=== PATIENT | male | born 1985 | race Two or more races ===

== ENCOUNTER 2018-01-25 17:01 | Observation (INO) | payer BC ==
[2018-01-25] MEDS ORDERED: Cefepime 1 GM in Premix Bag 1 BAG IV ONE (17:17)
[2018-01-25] MEDS ORDERED: HYDROmorphone 0.5 MG/0.5 ML SYRINGE IVPUSH PRN (17:18)
[2018-01-25] MEDS ORDERED: metroNIDAZOLE/Normal Saline 500 MG in Premix Bag 1 BAG IV ONE (17:21)
--- NOTE | 2018-01-25 17:25 | PCM.PREANE ---
Preanesthetic Assessment - Anesthesia/Transfusion/Family Hx Anesthesia History: Prior Anesthesia Without Reaction Family History of Anesthesia Reaction: No Transfusion History: No Prior Transfusion(s) Intubation History: Unknown - Review of Systems General: Weakness, Fatigue, Chills (yesterday) Pulmonary: No Symptoms Cardiovascular: No Symptoms Gastrointestinal: No Symptoms, Decreased Appetite Neurological: No Symptoms (vertigo episode noted 8 years ago.) Other: Reports: None - Physical Assessment NPO Status Date: 01/25/18 NPO Status Time: 15:30 Pulse: 84 O2 Sat by Pulse Oximetry: 99 Respiratory Rate: 16 Blood Pressure: 116/74 Temperature: 36.6 C Vital Signs: Last Vital Signs Temp 36.6 C 01/25/18 17:11 Pulse 84 01/25/18 17:11 Resp BP 116/74 01/25/18 17:11 Pulse Ox 99 01/25/18 17:11 Height: 1.78 m Weight: 86.183 kg ASA Class: 1E Mental Status: Alert & Oriented x3 Airway Class: Mallampati = 2 Dentition: Reports: Normal Dentition, Caries Thyro-Mental Finger Breadths: 3 Mouth Opening Finger Breadths: 3 ROM/Head Extension: Full Lungs: Clear to Auscultation, Normal Respiratory Effort Cardiovascular: Regular Rate, Regular Rhythm, No Murmurs - Lab Values: All lab values reviewed and noted and within acceptable ranges to proceed with scheduled procedure - Allergies Allergies/Adverse Reactions: Allergies Allergy/AdvReac Type Severity Reaction Status Date / Time No Known Allergies Allergy Verified 01/25/18 17:10 - Anesthesia Plan Pre-Op Medication Ordered: None - Acknowledgements Anesthesia Type Planned: General Anesthesia Pt an Appropriate Candidate for the Planned Anesthesia: Yes Alternatives and Risks of Anesthesia Discussed w Pt/Guardian: Yes Pt/Guardian Understands and Agrees with Anesthesia Plan: Yes PreAnesthesia Questionnaire - Past Health History Medical/Surgical History: Denies Medical/Surgical History - SUBSTANCE USE Smoking Status *Q: Current Every Day Smoker Tobacco Use Within Last Twelve Months: Snuff/Dip Recreational Drug Use History: No - HOME MEDS Home Medications: Home Meds . [No Known Home Meds] 05/08/15 [History] - CURRENT (IN HOUSE) MEDS Current Meds: Current Medications Hydromorphone HCl (Dilaudid) 1 mg IVPUSH Q1H PRN PRN Reason: Pain Cefepime HCl 1 gm/ Premix 50 mls @ 100 mls/hr IV ONETIME ONE Stop: 01/25/18 17:46 Metronidazole 500 mg/ Premix 100 mls @ 100 mls/hr IV ONETIME ONE Stop: 01/25/18 18:20 Discontinued Medications Fentanyl (Sublimaze) Confirm Administered Dose 250 mcg .ROUTE .STK-MED ONE Stop: 01/25/18 17:31 Hydromorphone HCl (Dilaudid) Confirm Administered Dose 0.5 mg .ROUTE .STK-MED ONE Stop: 01/25/18 17:30 Lidocaine HCl (Xylocaine-Mpf 1%) Confirm Administered Dose 4 mls @ as directed .ROUTE .STK-MED ONE Stop: 01/25/18 17:29 Lactated Ringer's (Ringers, Lactated) Confirm Administered Dose 2,000 mls @ as directed .ROUTE .STK-MED ONE Stop: 01/25/18 17:29 Ketorolac Tromethamine (Toradol) Confirm Administered Dose 30 mg .ROUTE .STK- MED ONE Stop: 01/25/18 17:29 Midazolam HCl (Versed 1 Mg/Ml) Confirm Administered Dose 2 mg .ROUTE .STK-MED ONE Stop: 01/25/18 17:30 Ondansetron HCl (Zofran) Confirm Administered Dose 4 mg .ROUTE .STK-MED ONE Stop: 01/25/18 17:29 Propofol (Diprivan 20 Ml) Confirm Administered Dose 200 mg .ROUTE .STK-MED ONE Stop: 01/25/18 17:30 Rocuronium [place] (Zemuron) Confirm Administered Dose 50 mg .ROUTE .STK-MED ONE Stop: 01/25/18 17:29
[2018-01-25] MEDS ORDERED: Ondansetron 4 MG/2 ML SDV ONE (17:28)
[2018-01-25] MEDS ORDERED: Lidocaine 1% 4 ML ONE (17:28)
[2018-01-25] MEDS ORDERED: Ketorolac 30 MG/ML SDV ONE (17:28)
[2018-01-25] MEDS ORDERED: Rocuronium 50 MG/5 ML Vial ONE (17:28)
[2018-01-25] MEDS ORDERED: Lactated Ringers 2,000 ML ONE (17:28)
[2018-01-25] MEDS ORDERED: HYDROmorphone 0.5 MG/0.5 ML Syringe ONE (17:29)
[2018-01-25] MEDS ORDERED: Midazolam 1 MG/ML 2 ML SDV ONE (17:29)
[2018-01-25] MEDS ORDERED: Propofol 200 MG/20 ML SDV ONE (17:29)
[2018-01-25] MEDS ORDERED: fentaNYL 250 MCG/5 ML SDV ONE (17:30)
[2018-01-25] MEDS ORDERED: cefOXitin 1 GM in Premix Bag 1 BAG IV ONE (17:39)
[2018-01-25] MEDS ORDERED: Bupivacaine 0.5% 30 ML SDV ONE (17:59)
[2018-01-25] MEDS ORDERED: Succinylcholine 200 MG/10 ML MDV ONE (18:11)
[2018-01-25] MEDS ORDERED: ePHEDrine 50 MG/ML SDV IVPUSH PRN (18:33)
[2018-01-25] MEDS ORDERED: HYDROmorphone 0.5 MG/0.5 ML Syringe IVPUSH PRN (18:33)
[2018-01-25] MEDS ORDERED: fentaNYL 100 MCG/2 ML SDV IVPUSH PRN (18:33)
[2018-01-25] MEDS ORDERED: Ondansetron 4 MG/2 ML SDV IVPUSH PRN ×2 (18:33→19:46)
[2018-01-25] MEDS ORDERED: diphenhydrAMINE 50 MG/ML SDV IVPUSH PRN (18:33)
[2018-01-25] MEDS ORDERED: Phenylephrine 1 MG in Sodium Chloride 0.9% 10 ML IV SCH (18:45)
[2018-01-25] MEDS ORDERED: Glycopyrrolate 0.2 MG/ML SDV ONE ×2 (18:53)
[2018-01-25] MEDS ORDERED: Neostigmine Methylsulfate 10 MG/10 ML MDV ONE (18:53)
--- NOTE | 2018-01-25 19:41 | PCM.OPNOTE ---
- General Post-Op/Procedure Note Date of Surgery/Procedure: 01/25/18 Operative Procedure(s): lap appy Pre Op Diagnosis: acute appendicitis Post-Op Diagnosis: Same Anesthesia Technique: General ET Tube Primary Surgeon: Anirudh Dudley EBL in mLs: 30 Complications: None Condition: Good Free Text/Narrative:: Intake & Output 01/25/18 01/25/18 01/25/18 07:59 15:59 23:59 Intake Total 100 Balance 100
--- NOTE | 2018-01-25 19:51 | PCM.POSTAN ---
POST ANESTHESIA ASSESSMENT - MENTAL STATUS Mental Status: Alert - VITAL SIGNS Pulse Rate: 93 SaO2: 96 (2 lpm nasal cannula) Resp Rate: 19 Blood Pressure: 118/70 Temperature: 36.9 C - RESPIRATORY Respiratory Status: Respiratory Rate WNL, Airway Patent, O2 Saturation Stable, Supplemental Oxygen - CARDIOVASCULAR CV Status: Pulse Rate WNL, Blood Pressure Stable - GASTROINTESTINAL GI Status: No Symptoms - POST OP HYDRATION Hydration Status: Adequate & Stable
[2018-01-25] MEDS: Acetaminophen/HYDROcodone 325-5 MG Tab PO PRN (20:58)
[2018-01-25] MEDS: Lactated Ringers 1,000 ML IV SCH (21:19)
[2018-01-26] MEDS: metroNIDAZOLE/Normal Saline 500 MG in Premix Bag 1 BAG IV SCH ×3 (00:57→17:26)
[2018-01-26] MEDS: cefOXitin 1 GM in Premix Bag 1 BAG IV SCH ×3 (01:02→17:26)
[2018-01-26] MEDS: Lactated Ringers 1,000 ML IV SCH (05:08)
--- NOTE | 2018-01-26 08:45 | OR ---
DATE OF OPERATION: 01/25/2018 SURGEON: Anirudh Dudley MD PREOPERATIVE DIAGNOSIS: Acute appendicitis. POSTOPERATIVE DIAGNOSIS: Acute appendicitis. OPERATION PERFORMED: Laparoscopic appendectomy. ESTIMATED BLOOD LOSS: About 20-30 mL. FINDINGS: Inflamed appendix with periappendiceal reaction and local peritonitis. ANESTHESIA: Procedure done under general anesthetic. DESCRIPTION OF PROCEDURE: The patient was taken to the operating room, placed in a supine position, given a general anesthetic and intubated. SCDs were placed. Antibiotics were given. The abdomen was clipped and prepped with chlorhexidine and alcohol prep, draped off in a sterile fashion. Incision was made for a previous incision of umbilical hernia repair and carried down by sharp dissection to the fascia which was opened, Ryan trocar placed, secured with stay sutures, pneumoperitoneum established. A 5-mm 30-degree camera was inserted showing inflamed appendix with reaction as described above. This was tucked up and under the ileum. The patient was placed in reverse Trendelenburg and the ileum and omentum was swept the left side aided by left side tilting. Appendix was then carefully mobilized and the mesoappendix was taken down with 1 firing of GOLD Endo-ligator and another firing the appendix from its attachment to the cecum. It was placed in an Endobag and removed. There was oozing and the rest of the surgery was involved in irrigating and watching for bleeders using judicious application of cautery and then Surgicel. Once the field was dry and there was excellent hemostasis, the area was irrigated both in the pelvis along the right pericolic gutter and the operative site. Some of the Surgicel was left in situ. Ports were then removed and the fascia of the subumbilical port closed with a running 0 Vicryl suture and the skin closed with subdermal 4-0 Dexon suture. Marcaine was infiltrated in each incision. Steri-Strips and sterile dressing placed. The patient tolerated the procedure and sent to recovery room in a stable condition. MMLIZZETTE /[id number]
--- NOTE | 2018-01-26 10:17 | PCM.SURGPN ---
- General Info Date of Service: 01/26/18 POD#: 1 Functional Status: Reports: Pain Controlled - Review of Systems General: Reports: No Symptoms Pulmonary: Reports: No Symptoms Cardiovascular: Reports: No Symptoms Gastrointestinal: Reports: No Symptoms - Patient Data Vitals - Most Recent: Last Vital Signs Temp 99.0 F 01/26/18 08:35 Pulse 55 L 01/26/18 08:35 Resp 15 01/26/18 08:33 BP 94/59 L 01/26/18 08:35 Pulse Ox 98 01/26/18 08:35 Weight - Most Recent: 86.682 kg I&O - Last 24 Hours: Intake & Output 01/25/18 01/26/18 01/26/18 23:59 07:59 15:59 Intake Total 1000 1550 Output Total 975 Balance 1000 575 Med Orders - Current: Current Medications Hydrocodone Bitart/Acetaminophen ([place] 325-5 Mg) 1 tab PO Q4H PRN PRN Reason: Pain Last Admin: 01/25/18 20:58 Dose: 1 tab Hydromorphone HCl (Dilaudid) 1 mg IVPUSH Q1H PRN PRN Reason: Pain Cefoxitin Sodium 1 gm/ Premix 50 mls @ 100 mls/hr IV Q8H [facility] Last Admin: 01/26/18 10:03 Dose: 100 mls/hr Metronidazole 500 mg/ Premix 100 mls @ 100 mls/hr IV Q8H [facility] Last Admin: 01/26/18 09:00 Dose: 100 mls/hr Ondansetron HCl (Zofran) 4 mg IVPUSH Q8H PRN PRN Reason: Nausea Discontinued Medications Bupivacaine HCl (Marcaine 0.5%) Confirm Administered Dose 30 ml .ROUTE .STK-MED ONE Stop: 01/25/18 18:00 Last Admin: 01/25/18 18:27 Dose: 11 ml Diphenhydramine HCl (Benadryl) 25 mg IVPUSH Q6H PRN PRN Reason: pruritis Ephedrine Sulfate (Ephedrine Sulfate) 5 mg IVPUSH ASDIRECTED PRN PRN Reason: Hypotension Fentanyl (Sublimaze) Confirm Administered Dose 250 mcg .ROUTE .STK-MED ONE Stop: 01/25/18 17:31 Glycopyrrolate (Robinul) Confirm Administered Dose 0.2 mg .ROUTE .STK-MED ONE Stop: 01/25/18 18:54 Glycopyrrolate (Robinul) Confirm Administered Dose 0.8 mg .ROUTE .STK-MED ONE Stop: 01/25/18 18:54 Hydromorphone HCl (Dilaudid) Confirm Administered Dose 0.5 mg .ROUTE .STK-MED ONE Stop: 01/25/18 17:30 Hydromorphone HCl (Dilaudid) 0.5 mg IVPUSH ONETIME PRN PRN Reason: Pain Lidocaine HCl (Xylocaine-Mpf 1%) Confirm Administered Dose 4 mls @ as directed .ROUTE .STK-MED ONE Stop: 01/25/18 17:29 Lactated Ringer's (Ringers, Lactated) Confirm Administered Dose 2,000 mls @ as directed .ROUTE .STK-MED ONE Stop: 01/25/18 17:29 Cefepime HCl 1 gm/ Premix 50 mls @ 100 mls/hr IV ONETIME ONE Stop: 01/25/18 17:46 Metronidazole 500 mg/ Premix 100 mls @ 100 mls/hr IV ONETIME ONE Stop: 01/25/18 18:20 Last Admin: 01/25/18 17:28 Dose: 100 mls/hr Cefoxitin Sodium 1 gm/ Premix 50 mls @ 100 mls/hr IV ONETIME ONE Stop: 01/25/18 18:08 Last Admin: 01/25/18 17:46 Dose: 100 mls/hr Lactated Ringer's (Ringers, Lactated) 1,000 mls [facility] Last Admin: 01/26/18 05:08 Dose: 100 mls/hr Ketorolac Tromethamine (Toradol) Confirm Administered Dose 30 mg .ROUTE .STK- MED ONE Stop: 01/25/18 17:29 Midazolam HCl (Versed 1 Mg/Ml) Confirm Administered Dose 2 mg .ROUTE .STK-MED ONE Stop: 01/25/18 17:30 Neostigmine Methylsulfate (Neostigmine Methylsulfate) Confirm Administered Dose 10 mg .ROUTE .STK-MED ONE Stop: 01/25/18 18:54 Ondansetron HCl (Zofran) Confirm Administered Dose 4 mg .ROUTE .STK-MED ONE Stop: 01/25/18 17:29 Ondansetron HCl (Zofran) 4 mg IVPUSH ONETIME PRN PRN Reason: Nausea/Vomiting Propofol (Diprivan 20 Ml) Confirm Administered Dose 200 mg .ROUTE .STK-MED ONE Stop: 01/25/18 17:30 Rocuronium [place] (Zemuron) Confirm Administered Dose 50 mg .ROUTE .STK-MED ONE Stop: 01/25/18 17:29 Succinylcholine Chloride (Quelicin) Confirm Administered Dose 200 mg .ROUTE .STK -MED ONE Stop: 01/25/18 18:12 - Exam General: Alert, Oriented Cardiovascular: Regular Rate, Regular Rhythm GI/Abdominal Exam: Normal Bowel Sounds, Soft, Non-Tender, No Organomegaly, No Distention, No Abnormal Bruit, No Mass, Pelvis Stable - Problem List Review Problem List Initiated/Reviewed/Updated: Yes - My Orders Last 24 Hours: Active Orders 24 hr Category Date Time Status Patient Status [ADT] Stat ADT 01/25/18 19:41 Active Ambulate [RC] PER UNIT ROUTINE Care 01/25/18 19:43 Active Communication Order [RC] ROUTINE Care 01/25/18 18:32 Inactive Cooling Warming Measures [RC] ASDIRECTED Care 01/25/18 18:32 Active Notify Provider [RC] ASDIRECTED Care 01/25/18 18:32 Active Pulse Oximetry [RC] ASDIRECTED Care 01/25/18 18:32 Active Turn, Cough, Deep Breathe [RC] .PRN Care 01/25/18 19:43 Active Clear Liquid Diet [DIET] Diet 01/26/18 Breakfast Active Regular Diet [DIET] Diet 01/26/18 Lunch Active Acetaminophen/HYDROcodone [[place] 325-5 MG] Med 01/25/18 19:47 Active 1 tab PO Q4H PRN HYDROmorphone [Dilaudid] Med 01/25/18 17:18 Active 1 mg IVPUSH Q1H PRN Ondansetron [Zofran] Med 01/25/18 19:46 Active 4 mg IVPUSH Q8H PRN cefOXitin [Mefoxin in Dextrose,Iso-Osm 1 GM/50 ML] 1 gm Med 01/26/18 02:00 Active Premix Bag 1 bag IV Q8H metroNIDAZOLE/Normal Saline [Flagyl 500 MG in NS 100 ML Med 01/26/18 01:30 Active ] 500 mg Premix Bag 1 bag IV Q8H Schedule Procedure [COMM] Stat Oth 01/25/18 17:41 Ordered Sequential Compression Device [OM.PC] Routine Oth 01/25/18 21:44 Ordered Resuscitation Status Routine Resus Stat 01/25/18 21:43 Ordered Medication Orders Hydrocodone Bitart/Acetaminophen ([place] 325-5 Mg) 1 tab PO Q4H PRN PRN Reason: Pain Last Admin: 01/25/18 20:58 Dose: 1 tab Hydromorphone HCl (Dilaudid) 1 mg IVPUSH Q1H PRN PRN Reason: Pain Cefoxitin Sodium 1 gm/ Premix 50 mls @ 100 mls/hr IV Q8H [facility] Last Admin: 01/26/18 10:03 Dose: 100 mls/hr Infusion: 01/26/18 01:32 Dose: 100 mls/hr Admin: 01/26/18 01:02 Dose: 100 mls/hr Metronidazole 500 mg/ Premix 100 mls @ 100 mls/hr IV Q8H [facility] Last Admin: 01/26/18 09:00 Dose: 100 mls/hr Infusion: 01/26/18 01:57 Dose: 100 mls/hr Admin: 01/26/18 00:57 Dose: 100 mls/hr Ondansetron HCl (Zofran) 4 mg IVPUSH Q8H PRN PRN Reason: Nausea - Plan Plan (Free Text/Narrative):: pt improved plan is to advance diet and will ambulate and stopp IV fluid and obtain aHB in am continue with IV antibiotics XU
--- NOTE | 2018-01-26 11:11 | PCM48HPAN ---
Post Anesthesia Note - EVALUATION WITHIN 48HRS OF ANESTHETIC Vital Signs in Normal Range: Yes Patient Participated in Evaluation: Yes Respiratory Function Stable: Yes Airway Patent: Yes Cardiovascular Function Stable: Yes Hydration Status Stable: Yes Pain Control Satisfactory: Yes Nausea and Vomiting Control Satisfactory: Yes Mental Status Recovered: Yes Pulse Rate: 55 Resp Rate: 15 Temperature: 99.0 F Blood Pressure: 94/59
[2018-01-26] MEDS: Acetaminophen/HYDROcodone 325-5 MG Tab PO PRN ×2 (11:53→20:32)
[2018-01-26] MEDS ORDERED: traZODone 50 MG Tab PO ONE (23:24)
[2018-01-27] MEDS: metroNIDAZOLE/Normal Saline 500 MG in Premix Bag 1 BAG IV SCH ×2 (02:08→09:58)
[2018-01-27] MEDS: cefOXitin 1 GM in Premix Bag 1 BAG IV SCH ×2 (02:09→09:58)
[2018-01-27] MEDS: Acetaminophen/HYDROcodone 325-5 MG Tab PO PRN (09:58)
--- NOTE | 2018-01-27 11:11 | PCM.SURGPN ---
- General Info Date of Service: 01/27/18 - Patient Data Vitals - Most Recent: Last Vital Signs Temp 98.2 F 01/27/18 08:17 Pulse 58 L 01/27/18 08:17 Resp 14 01/27/18 08:17 BP 105/63 01/27/18 08:17 Pulse Ox 95 01/27/18 08:17 Weight - Most Recent: 86.364 kg I&O - Last 24 Hours: Intake & Output 01/26/18 01/27/18 01/27/18 23:59 07:59 15:59 Intake Total 1600 650 Output Total 1650 Balance -50 650 Lab Results Last 24 Hrs: Laboratory Results - last 24 hr 01/27/18 Range/Units 05:55 WBC 6.32 (4.23-9.07) K/mm3 RBC 4.72 (4.63-6.08) M/mm3 Hgb 14.5 (13.7-17.5) gm/L Hct 41.1 (40.1-51.0) % MCV 87.1 (79.0-92.2) fl MCH 30.7 (25.7-32.2) pg MCHC 35.3 (32.2-35.5) g/dl RDW Std Deviation 38.2 (35.1-43.9) fL Plt Count 210 (163-337) K/mm3 MPV 10.3 (9.4-12.3) fl Neut % (Auto) 44.5 (34.0-67.9) % Lymph % (Auto) 39.7 (21.8-53.1) % [place] % (Auto) 13.9 H (5.3-12.2) % Eos % (Auto) 1.1 (0.8-7.0) Baso % (Auto) 0.5 (0.1-1.2) % Neut # (Auto) 2.81 (1.78-5.38) K/mm3 Lymph # (Auto) 2.51 (1.32-3.57) K/mm3 [place] # (Auto) 0.88 H (0.30-0.82) K/mm3 Eos # (Auto) 0.07 (0.04-0.54) K/mm3 Baso # (Auto) 0.03 (0.01-0.08) K/mm3 Med Orders - Current: Current Medications Hydrocodone Bitart/Acetaminophen ([place] 325-5 Mg) 1 tab PO Q4H PRN PRN Reason: Pain Last Admin: 01/27/18 09:58 Dose: 1 tab Hydromorphone HCl (Dilaudid) 1 mg IVPUSH Q1H PRN PRN Reason: Pain Cefoxitin Sodium 1 gm/ Premix 50 mls @ 100 mls/hr IV Q8H [facility] Last Admin: 01/27/18 09:58 Dose: 100 mls/hr Metronidazole 500 mg/ Premix 100 mls @ 100 mls/hr IV Q8H [facility] Last Admin: 01/27/18 09:58 Dose: 100 mls/hr Ondansetron HCl (Zofran) 4 mg IVPUSH Q8H PRN PRN Reason: Nausea Discontinued Medications Bupivacaine HCl (Marcaine 0.5%) Confirm Administered Dose 30 ml .ROUTE .STK-MED ONE Stop: 01/25/18 18:00 Last Admin: 01/25/18 18:27 Dose: 11 ml Diphenhydramine HCl (Benadryl) 25 mg IVPUSH Q6H PRN PRN Reason: pruritis Ephedrine Sulfate (Ephedrine Sulfate) 5 mg IVPUSH ASDIRECTED PRN PRN Reason: Hypotension Fentanyl (Sublimaze) Confirm Administered Dose 250 mcg .ROUTE .STK-MED ONE Stop: 01/25/18 17:31 Glycopyrrolate (Robinul) Confirm Administered Dose 0.2 mg .ROUTE .STK-MED ONE Stop: 01/25/18 18:54 Glycopyrrolate (Robinul) Confirm Administered Dose 0.8 mg .ROUTE .STK-MED ONE Stop: 01/25/18 18:54 Hydromorphone HCl (Dilaudid) Confirm Administered Dose 0.5 mg .ROUTE .STK-MED ONE Stop: 01/25/18 17:30 Hydromorphone HCl (Dilaudid) 0.5 mg IVPUSH ONETIME PRN PRN Reason: Pain Lidocaine HCl (Xylocaine-Mpf 1%) Confirm Administered Dose 4 mls @ as directed .ROUTE .STK-MED ONE Stop: 01/25/18 17:29 Lactated Ringer's (Ringers, Lactated) Confirm Administered Dose 2,000 mls @ as directed .ROUTE .STK-MED ONE Stop: 01/25/18 17:29 Cefepime HCl 1 gm/ Premix 50 mls @ 100 mls/hr IV ONETIME ONE Stop: 01/25/18 17:46 Metronidazole 500 mg/ Premix 100 mls @ 100 mls/hr IV ONETIME ONE Stop: 01/25/18 18:20 Last Admin: 01/25/18 17:28 Dose: 100 mls/hr Cefoxitin Sodium 1 gm/ Premix 50 mls @ 100 mls/hr IV ONETIME ONE Stop: 01/25/18 18:08 Last Admin: 01/25/18 17:46 Dose: 100 mls/hr Lactated Ringer's (Ringers, Lactated) 1,000 mls @ 100 mls/hr IV ASDIRECTED [facility] Last Admin: 01/26/18 05:08 Dose: 100 mls/hr Ketorolac Tromethamine (Toradol) Confirm Administered Dose 30 mg .ROUTE .STK- MED ONE Stop: 01/25/18 17:29 Midazolam HCl (Versed 1 Mg/Ml) Confirm Administered Dose 2 mg .ROUTE .STK-MED ONE Stop: 01/25/18 17:30 Neostigmine Methylsulfate (Neostigmine Methylsulfate) Confirm Administered Dose 10 mg .ROUTE .STK-MED ONE Stop: 01/25/18 18:54 Ondansetron HCl (Zofran) Confirm Administered Dose 4 mg .ROUTE .STK-MED ONE Stop: 01/25/18 17:29 Ondansetron HCl (Zofran) 4 mg IVPUSH ONETIME PRN PRN Reason: Nausea/Vomiting Propofol (Diprivan 20 Ml) Confirm Administered Dose 200 mg .ROUTE .STK-MED ONE Stop: 01/25/18 17:30 Rocuronium [place] (Zemuron) Confirm Administered Dose 50 mg .ROUTE .STK-MED ONE Stop: 01/25/18 17:29 Succinylcholine Chloride (Quelicin) Confirm Administered Dose 200 mg .ROUTE .STK -MED ONE Stop: 01/25/18 18:12 Trazodone HCl (Trazodone) 50 mg PO ONETIME ONE Stop: 01/26/18 23:25 Last Admin: 01/26/18 23:32 Dose: 50 mg - Problem List Review Problem List Initiated/Reviewed/Updated: Yes - My Orders Last 24 Hours: Active Orders 24 hr Category Date Time Status Regular Diet [DIET] Diet 01/26/18 Lunch Active Medication Orders Hydrocodone Bitart/Acetaminophen ([place] 325-5 Mg) 1 tab PO Q4H PRN PRN Reason: Pain Last Admin: 01/27/18 09:58 Dose: 1 tab Admin: 01/26/18 20:32 Dose: 1 tab Admin: 01/26/18 11:53 Dose: 1 tab Admin: 01/25/18 20:58 Dose: 1 tab Hydromorphone HCl (Dilaudid) 1 mg IVPUSH Q1H PRN PRN Reason: Pain Cefoxitin Sodium 1 gm/ Premix 50 mls @ 100 mls/hr IV Q8H [facility] Last Admin: 01/27/18 09:58 Dose: 100 mls/hr Infusion: 01/27/18 02:39 Dose: 100 mls/hr Admin: 01/27/18 02:09 Dose: 100 mls/hr Infusion: 01/26/18 17:56 Dose: 100 mls/hr Admin: 01/26/18 17:26 Dose: 100 mls/hr Infusion: 01/26/18 10:33 Dose: 100 mls/hr Admin: 01/26/18 10:03 Dose: 100 mls/hr Infusion: 01/26/18 01:32 Dose: 100 mls/hr Admin: 01/26/18 01:02 Dose: 100 mls/hr Metronidazole 500 mg/ Premix 100 mls @ 100 mls/hr IV Q8H [facility] Last Admin: 01/27/18 09:58 Dose: 100 mls/hr Infusion: 01/27/18 03:08 Dose: 100 mls/hr Admin: 01/27/18 02:08 Dose: 100 mls/hr Infusion: 01/26/18 18:26 Dose: 100 mls/hr Admin: 01/26/18 17:26 Dose: 100 mls/hr Infusion: 01/26/18 10:00 Dose: 100 mls/hr Admin: 01/26/18 09:00 Dose: 100 mls/hr Infusion: 01/26/18 01:57 Dose: 100 mls/hr Admin: 01/26/18 00:57 Dose: 100 mls/hr Ondansetron HCl (Zofran) 4 mg IVPUSH Q8H PRN PRN Reason: Nausea - Plan Plan (Free Text/Narrative):: discharge dictated XU
[2018-01-27 12:11] VITALS: BP 110/65
--- NOTE | 2018-01-28 08:56 | DISCH ---
ADMISSION DATE: 01/25/2018 DISCHARGE DATE: 01/27/2018 HISTORY: This is a 32-year-old male, who presented with abdominal pain and bloating, primarily located in the periumbilical area in the right lower quadrant. The pain started yesterday in the morning and reported that it was associated with feeling warm and loss of appetite. He was seen in [facility], where the CT scan was done showing acute appendicitis. He was evaluated and arranged for urgent laparoscopic appendectomy. The patient is from [place]. He is working in the [employer] industry. His past medical history, unremarkable. PHYSICAL EXAMINATION: GENERAL: Revealed an alert, cooperative, male. HEENT: Eyes, sclerae white. Extraocular muscle motion normal. Oral cavity, healthy mucous membrane with mouth and tongue. NECK: Supple. No nodes. No thyromegaly. LUNGS: Clear. CARDIAC: Heart tones regular rate. ABDOMEN: Showed mild distended abdomen, hypoactive sounds, and tenderness in the right lower quadrant to slight palpation with positive McBurney's sign. LABORATORY DATA: White count was 9.8. HOSPITAL COURSE: The patient was seen in the clinic and arrangements for urgent laparoscopic appendectomy was made and this was performed, and because of the peritoneal reaction around the appendix and the oozing quality of the surgical bed, he was elected to be watched overnight, and placed on antibiotics. The patient slowly improved up and ambulating, eating without problem, and requesting discharge. His plans were to travel to [place] to convalesce and come back in 2 weeks. At the time of his discharge, his wound was healing without problem. He reached maximum hospital benefit. DISCHARGE DIAGNOSIS: Acute appendicitis status post laparoscopic appendectomy. CONDITION ON DISCHARGE: Improved. DIET: Regular. DISCHARGE MEDICATIONS: Pain medication Motrin. ACTIVITY: No work for 2 weeks and light duty for 2 weeks following this. FOLLOW-UP: Follow up and see me in 2 weeks. FINAL DIAGNOSIS: MMODAL /[id number]
== END 2018-01-27 13:00 | disposition home or self-care (01) ==
LOC: JD.ED 17:01 → EDSTATUS 17:06 → JD.ED 17:50 → JD.SDS 18:04 → JD.MS 19:41
PROVIDERS: ADMIT Surgery; ATTEND Surgery
DX: K35.3 Acute appendicitis with localized peritonitis (principal)
CPT/HCPCS: 36415; 44970; 85025; 96365; 96375; 99285; A9270; G0378; J0330; J0694; J1170; J1885; J2250; J2405; J2710; J3010; J3490; J7120; J2704